=== PATIENT | female | born 1965 | race Caucasian/White ===

== ENCOUNTER → 2016-03-08 | Outpatient (CLI) | payer BC ==
[~2016-03-08] MED LIST: ALBU17IN INH; BISO2.5T PO; CETI10TA PO; LISI30TA4 PO; MACR100C42 PO; MOTR200T44 PO; OMEP20CA3 PO; PERC5TAB6 PO; SIMV10TA2 PO; [UNRECOGNIZED DRUG - OTHER]
--- NOTE | 2016-03-08 18:22 | REP ---
Chest, two views: Two views of the chest are performed and compared to the prior study of 12/06/2009. There is a large hiatal hernia. I see no definite acute infiltrate. The heart is normal in size. There is some tortuosity of the thoracic aorta. The mediastinal silhouette is unchanged. IMPRESSION: Large hiatal hernia. No definite acute infiltrate. Signed by Shivam Villasenor MD 03/08/2016 07:42 P
== END ==
LOC: M LRY 17:19
PROVIDERS: ATTEND Nurse Practitioner Family
DX: R06.89 Other abnormalities of breathing (principal); R05 Cough

== ENCOUNTER → 2016-05-15 | Outpatient (REF) | payer BC | LOC: M SFHCLERA 19:15 | PROVIDERS: ATTEND Nurse Practitioner Family | DX: R53.81 Other malaise (principal) ==

== ENCOUNTER 2016-11-10 07:08 | Day surgery (SDC) | payer BC ==
[~2016-11-10] VITALS: Ht 160 cm; Wt 54.4 kg
[~2016-11-10 07:08] MED LIST changes: +ALEV220C2 PO; +BISO5TAB2 PO; +BREO1INH INH; +FLUTISP; +IPRASOL4 IN; +MAGN400T5 PO; +MULTTAB26 PO; +NEXI20CA PO; +PERC5TAB12 PO; -PERC5TAB6 PO; +SUMA25TA3 PO
[2016-11-10] MEDS ORDERED: LR 1,000 ML IV ONE (07:15)
[2016-11-10] MEDS ORDERED: LIDOCAINE 2% MDV 20 ML VIAL As Ordered ONE (08:55)
[2016-11-10] MEDS ORDERED: dexameTHASONE 4 MG/ML 1ML VIAL (J1100) As Ordered ONE (08:56)
[2016-11-10] MEDS ORDERED: BUPIVACAINE HCL 0.5% 30 ML VIAL As Ordered ONE (08:56)
[2016-11-10] MEDS ORDERED: MIDAZOLAM INJ 2 MG/2 ML VIAL (J2250) As Ordered ONE ×2 (09:22→10:52)
[2016-11-10] MEDS ORDERED: fentaNYL 100 MCG/2 ML INJECTION (J3010) As Ordered ONE (09:23)
[2016-11-10] MEDS ORDERED: KETOROLAC 60 MG/2 ML VIAL (J1885) As Ordered ONE (09:58)
[2016-11-10] MEDS: BACITRACIN PWD 50,000 UNITS VIAL As Ordered ONE ×2 (10:13→10:15)
[2016-11-10] MEDS: NEOSPORIN GU IRRIG 20 ML VIAL As Ordered ONE ×2 (10:14→10:16)
[2016-11-10] MEDS ORDERED: LIDOCAINE 2% INJ 100 MG/5 ML SDV (FOR ANES.) As Ordered ONE (10:26)
[2016-11-10] MEDS ORDERED: PROPOFOL 200 MG/20 ML VIAL As Ordered ONE ×2 (10:26→11:12)
[2016-11-10] MEDS ORDERED: ONDANSETRON 4MG/2ML VIAL (J2405) As Ordered ONE (11:20)
[2016-11-10 12:25] VITALS: BP 129/79
--- NOTE | 2016-11-10 13:11 | REP ---
RIGHT FOOT SERIES: Three views of the right foot are performed status post bunionectomy. There is a metallic plate and screws bridging the joint between the medial cuneiform and base of first metatarsal. Metallic screw is seen in the distal fifth metatarsal. The structures are well aligned. An overlying cast obscures underlying osseous detail. Signed by Shivam Villasenor MD 11/10/2016 02:46 P
--- NOTE | 2016-11-10 17:01 | REP ---
Partial right foot series: Four views. History: C-arm intraprocedural films. 5.5 seconds of fluoroscopy time is reported. Findings: A sequence of four last image hold fluoroscopic spot radiographs of the right foot document operative manipulation. Signed by Gutierrez Pascual MD 11/12/2016 09:38 A
--- NOTE | 2016-11-16 08:18 | RO ---
DATE OF PROCEDURE: 11/10/2016 PREOPERATIVE DIAGNOSES: Hallux valgus metatarsus primus varus deformity, right foot. Tailor's bunion deformity right foot. POSTOPERATIVE DIAGNOSES: Hallux valgus metatarsus primus varus deformity, right foot. Tailor's bunion deformity right foot. PROCEDURES PERFORMED: Lapidus bunionectomy with internal screw fixation and plate fixation. Tailor's bunionectomy with internal screw fixation, right foot. SURGEON: Darien Reese DPM POLE PEELER: None. ANESTHESIA: Local monitored anesthesia care (MAC). ESTIMATED BLOOD LOSS: Less than 5 mL. DRAINS UTILIZED: None. HARDWARE UTILIZED: LPS plate, size 0, with nonlocking screws, 2.7 x 16 times one, and a 2.7 x 18 times three, and a DART-FIRE compression screw 3.5 x 34 mm times one, and a 2.5 x 14 mm DART-FIRE times one. DESCRIPTION OF OPERATION: On 11/10/2016, this 50-year-old white female was taken from her hospital room to the operating room and placed on the operating room table in supine position. Following the induction of IV sedation and local and regional anesthesia, the right lower extremity was prepped and draped in the usual aseptic manner. The right lower extremity was rapidly inflated and attention was directed to the patient's right foot where the following procedure was performed: LAPIDUS BUNIONECTOMY WITH PLATE AND SCREW FIXATION RIGHT FOOT: Attention was directed to the patients right foot where there was noted to be a moderately severe hallux valgus deformity. At this time, an incision was made just proximal to the first metatarsal cuneiform joint and then ending distal to the first metatarsal phalangeal joint. The incision was deepened through the subcutaneous tissue and all coursing venous tributaries were identified, underscored, cut, ligated, and electrocoagulated as necessary. The linear capsulotomy was then performed in the same plane as the original skin incision over the first metatarsal phalangeal joint. A capsular envelop was created dorsally and medially delivering into view the hypertrophied medial eminence, which was osteotomized from distal to proximal through and through. This was extirpated from the wound. Dissection was carried into the first inner metatarsal space where the conjoin tendon was sharply dissected free from the fibular sesamoid. Attention was directed to the first metatarsal cuneiform joint where exposure was obtained and a wedge osteotomy was placed involving minimal bone and encompassing the articular cartilage, more taken on the lateral surface than the medial surface. The bone wedge was then removed. The joint was fenestrated with a 2.0 drill bit to promote fusion. A temporary wire was then placed across the 1st and 2nd metatarsal. Intraoperative C-arm images revealed a good reduction of the osteotomy. A compression screw was then placed across the osteotomy measuring 3.5 x 34 mm times one. A medial plate was then contoured and the LPS plate was then placed on the medial side of the first metatarsal cuneiform joint and fixated with three 2.7 x 18 mm nonlocking screws and a 2.7 x 16 mm nonlocking screw. Stable construct was then constructed and was stable in all three cardinal planes. The wound was flushed with copious amounts of diluted bacitracin, neomycin and polymyxin B solution. Attention was directed towards closure where the capsular and periosteal structures were coapted and maintained utilizing #2-0 Monocryl in a simple interrupted type fashion. The subcutaneous tissues were coapted and maintained utilizing #4-0 Monocryl in a simple interrupted type fashion. The skin incision was coapted and maintained utilizing #4-0 Prolene in a simple interrupted and horizontal mattress type fashion. Attention was then directed to the lateral surface of the foot where the following procedure was performed. TAILOR'S BUNIONECTOMY WITH DISTAL V OSTEOTOMY, INTERNAL SCREW FIXATION 2.5 MM X 14 MM TIMES ONE RIGHT FOOT: Attention was directed to the patient's right foot where there was noted to be a Tailors bunion deformity. At this time, a 4 cm incision was placed along the lateral surface of the 5th metatarsal phalangeal joint. The incision was deepened through subcutaneous tissues and all coursing venous tributaries were identified, underscored, clamped, cut, ligated, and electrocoagulated as necessary. Linear capsulotomy was performed in the same plane as the original skin incision. This delivered into view the hypertrophied lateral eminence of the 5th metatarsal, which was osteotomized from distal to proximal through and through. A V-shaped osteotomy was then performed in the lateral margin of the 5th metatarsal through the distal metaphysis with a long plantar and short dorsal wing. The capital fragment was transposed approximately 40% of the width of the shaft of the 5th metatarsal and fixated with a 2.5 x 14 mm DART-FIRE compression screw. The osteotomy was noted to be stable in all three cardinal planes. The redundant cortical spike was then osteotomized from dorsal to plantar through and through and extirpated from the wound. The medial surface was rasped to a smooth contour. The wound was flushed with copious amounts of diluted bacitracin, neomycin and polymyxin B solution. Attention was directed towards closure where the capsular structures were coapted and maintained utilizing #2-0 Monocryl in a simple interrupted type fashion. The subcutaneous tissues were coapted and maintained utilizing #4-0 Monocryl in a simple interrupted type fashion. The skin incision was coapted and maintained utilizing #5-0 Monocryl in a continuous subcuticular type fashion. Following the completion of the surgical procedure, 4 mg of dexamethasone sodium phosphate was instilled proximal to the surgical site. Attention was then directed towards bandaging where a sterile compressive bandage was applied consisting of Adaptic, 4x4s, 4x4 splints, and a Paz compressive dressing with an anterior splint. The ankle pneumatic tourniquet was rapidly deflated and instantaneous capillary filling time was noted in digits 1-5 of the patient's right foot. The patient apparently having tolerated the surgical procedure well was taken from the OR to the recovery room with vital signs stable and the patient afebrile for further monitoring by the anesthesia department. All surgical specimens removed during the operative procedure were sent to pathology for gross and microscopic examination. Postoperative instructions will be given upon discharge.
== END 2016-11-10 12:45 | disposition home or self-care (01) ==
LOC: M SDC 07:08
PROVIDERS: ATTEND Podiatrist
DX: M20.11 Hallux valgus (acquired), right foot (principal); M21.621 Bunionette of right foot; I10 Essential (primary) hypertension; E78.5 Hyperlipidemia, unspecified; E04.1 Nontoxic single thyroid nodule; K21.9 Gastro-esophageal reflux disease without esophagitis; J44.9 Chronic obstructive pulmonary disease, unspecified; Z79.51 Long term (current) use of inhaled steroids; Z79.899 Other long term (current) drug therapy; Z87.891 Personal history of nicotine dependence
CPT/HCPCS: 28110; 28297; 73630; 88300; 97116; C1776; J0690; J1100; J1885; J2250; J2405; J3010

== ENCOUNTER 2017-05-18 06:46 | Day surgery (SDC) | payer BC ==
[2017-05-18] MEDS: LR 1,000 ML IV (08:03)
[2017-05-18] MEDS ORDERED: fentaNYL 100 MCG/2 ML INJECTION (J3010) As Ordered (08:20)
[2017-05-18] MEDS ORDERED: LIDOCAINE 2% INJ 100 MG/5 ML SDV (FOR ANES.) As Ordered (08:20)
[2017-05-18] MEDS ORDERED: MIDAZOLAM INJ 2 MG/2 ML VIAL (J2250) As Ordered (08:20)
[2017-05-18] MEDS ORDERED: PROPOFOL 200 MG/20 ML VIAL As Ordered ×4 (08:20→10:44)
[2017-05-18] MEDS: BUPIVACAINE HCL 0.5% 30 ML VIAL As Ordered (08:44)
[2017-05-18] MEDS: LIDOCAINE 2% MDV 20 ML VIAL As Ordered (08:44)
[2017-05-18] MEDS: NEOSPORIN GU IRRIG 20 ML VIAL As Ordered (08:55)
[2017-05-18] MEDS: BACITRACIN PWD 50,000 UNITS VIAL As Ordered (08:55)
[2017-05-18] MEDS: dexameTHASONE 4 MG/ML 1ML VIAL (J1100) As Ordered (09:09)
== END 2017-05-18 11:59 | disposition home or self-care (01) ==
LOC: M SDC 06:46
DX: M20.12 Hallux valgus (acquired), left foot (principal); M21.622 Bunionette of left foot; I10 Essential (primary) hypertension; E78.2 Mixed hyperlipidemia; E04.1 Nontoxic single thyroid nodule; K21.9 Gastro-esophageal reflux disease without esophagitis; M12.9 Arthropathy, unspecified; M41.25 Other idiopathic scoliosis, thoracolumbar region; G43.909 Migraine, unspecified, not intractable, without status migrainosus; J44.9 Chronic obstructive pulmonary disease, unspecified; R06.83 Snoring; T88.59XD Other complications of anesthesia, subsequent encounter; Z91.013 Allergy to seafood; Z91.018 Allergy to other foods; Z79.899 Other long term (current) drug therapy; Z90.710 Acquired absence of both cervix and uterus; Z98.51 Tubal ligation status
CPT/HCPCS: 28297

== ENCOUNTER → 2017-08-21 | Outpatient (CLI) | payer BC, OTHER | LOC: M LRY 10:48 | DX: S89.391A Other physeal fracture of lower end of right fibula, initial encounter for closed fracture (principal); X58.XXXA Exposure to other specified factors, initial encounter; Y92.9 Unspecified place or not applicable | CPT/HCPCS: 73610 ==

== ENCOUNTER → 2018-03-26 | Outpatient (CLI) | payer BC, OTHER ==
[~2018-03-26] MED LIST changes: +DALI1TAB2 PO; +IPRA0.00 IN; -IPRASOL4 IN; +LISI-672 PO; -LISI30TA4 PO
--- NOTE | 2018-03-26 18:14 | REP ---
PA and lateral chest: Comparison is 03/08/2016. Lung horner are clear. Cardiac size is normal. The hank, mediastinum, skeletal structures are unremarkable. There is a large hiatal hernia containing an air-fluid level, unchanged. Impression: No acute cardiopulmonary findings. Large hiatal hernia. Electronically Signed by Shivam Mazariegos MD 03/26/2018 06:06 P
== END ==
LOC: M LRY 17:40
PROVIDERS: ATTEND Nurse Practitioner Family
DX: R06.2 Wheezing (principal); K44.9 Diaphragmatic hernia without obstruction or gangrene